=== PATIENT | male | born 1945 | race Caucasian/White ===

== ENCOUNTER 2018-12-03 12:52 | Emergency (ER) | payer MEDICARE ==
[2018-12-03 13:07] VITALS: RESP 18; TEMP 98.1
[2018-12-03] MEDS ORDERED: LIDOCAINE 1% INJ 10MG/ML (20 ML MDV) SQ ONE (13:44)
[2018-12-03] MEDS ORDERED: DIPH,PERTUS(ACELL)TETVAC-LF 0.5 ML VIAL IM ONE (13:46)
--- NOTE | 2018-12-03 14:42 | ED ---
General Adult HPI - General Chief complaint: Wound/Laceration Stated complaint: thumb lac Time Seen by Provider: 12/03/18 13:08 Source: patient Mode of arrival: ambulatory Limitations: no limitations - History of Present Illness Initial comments: Patient is an 3-year-old male presenting to the emergency department with a laceration to his right thumb. Patient states that he was using a saw when he accidentally sliced his finger. Patient states that he immediately came to the emergency department. Patient did not take any medication to alleviate the pain. Patient denies any numbness or tingling or muscle weakness in the thumb. Patient denies any pain in the anatomical snuffbox.. patient states that his tetanus shot is not up-to-date. - Related Data Allergies Allergy/AdvReac Type Severity Reaction Status Date / Time No Known Allergies Allergy Verified 12/03/18 13:07 Review of Systems ROS Statement: Those systems with pertinent positive or pertinent negative responses have been documented in the HPI. ROS Other: All systems not noted in ROS Statement are negative. Past Medical History Past Medical History: Hypertension History of Any Multi-Drug Resistant Organisms: None Reported Past Surgical History: No Surgical Hx Reported Past Psychological History: No Psychological Hx Reported Smoking Status: Never smoker Past Alcohol Use History: None Reported Past Drug Use History: None Reported General Exam Limitations: no limitations General appearance: alert, in no apparent distress Head exam: Present: atraumatic, normocephalic, normal inspection Eye exam: Present: normal appearance, PERRL, EOMI ENT exam: Present: normal exam Neck exam: Present: normal inspection Respiratory exam: Present: normal lung sounds bilaterally. Absent: wheezes, rales Cardiovascular Exam: Present: regular rate, normal rhythm, normal heart sounds Right General: Present: laceration (2 cm linear laceration on right first digit.). Absent: foreign body Hand Wrist exam: Present: normal inspection, full ROM Vascular: Present: normal capillary refill Neurological exam: Present: alert, oriented X3 Psychiatric exam: Present: normal affect, normal mood Skin exam: Present: warm, normal color Course Vital Signs 12/03/18 13:03 Temperature 98.1 F Pulse Rate 82 Respiratory 18 Rate Blood Pressure 146/85 O2 Sat by Pulse 96 Oximetry Procedures - Laceration Laceration #1 Indication: laceration Site: other (First digit, right) Size (cm): 2 Description: linear Depth: simple, single layer Anesthetic Used: lidocaine 1% Anesthesia Technique: local infiltration Amount (mls): 10 Type of Sutures: nylon Size of Sutures: 4-0 Number of Sutures: 8 Technique: simple, interrupted Patient Tolerated Procedure: well Medical Decision Making - Medical Decision Making Patient is an 3-year-old male presents to the emergency department with laceration to the right first digit. Patient was locally anesthetized with lidocaine and a sutures were placed. Return parameters were discussed with the patient. Patient was also given a tetanus shot. Patient advised to follow proper wound care instructions. Case discussed with physician. Disposition Clinical Impression: Laceration Disposition: HOME SELF-CARE Condition: Stable Instructions (If sedation given, give patient instructions): Moderate Sedation (ED) Additional Instructions: Please follow wound care instructions. Please follow up primary care. Is patient prescribed a controlled substance at d/c from ED?: No Referrals: Talya Field DO [Primary Care Provider] - 1-2 days Time of Disposition: 14:42
[2018-12-03 14:50] VITALS: BP 128/103; PULSE 83
== END 2018-12-03 14:48 | disposition home or self-care (01) ==
LOC: EC 12:52
DX: S61.011A Laceration without foreign body of right thumb without damage to nail, initial encounter (principal); Z23 Encounter for immunization; W31.2XXA Contact with powered woodworking and forming machines, initial encounter; Y92.009 Unspecified place in unspecified non-institutional (private) residence as the place of occurrence of the external cause
CPT/HCPCS: 90715; 99282; 12001; 90471; J2001

== ENCOUNTER → 2019-05-11 | Outpatient (CLI) | payer MEDICARE ==
--- NOTE | 2019-05-11 11:12 | FL ---
EXAMINATION TYPE: FL barium swallow DATE OF EXAM: 05/11/2019 CLINICAL HISTORY: Dysphagia and cough TECHNIQUE: A double contrast esophagram is performed utilizing air and barium. A total of 1 minute and 25 seconds of fluoroscopic time was utilized during procedure. 38 fluoroscopic images were saved during the examination. COMPARISON: None FINDINGS: The esophagus shows abnormal motility and emptying into the stomach with tertiary contracti ons and small hiatal hernia. No evidence of stricture noted. Moderate degree gastroesophageal reflux is seen to the midthoracic esophagus. Ovoid filling defect of the mid to distal esophagus at approximately the level of T10 persists throug hout the examination and therefore is not related to an air bubble. Follow-up is suspected although i nitial images demonstrate questionable appearance of a diverticulum at a similar level. IMPRESSION: 1. Filling defect of the mid to distal esophagus above the level of T10 approximately that may repres ent a small polyp or alternatively diverticulum. Direct visualization with endoscopy is recommended. 2. Small to moderate hiatal hernia and moderate degree gastroesophageal reflux. 3. Findings most commonly relating to presbyesophagus.
== END | disposition home or self-care (01) ==
LOC: RADUSWWP 09:47
PROVIDERS: ATTEND Family Medicine
DX: K44.9 Diaphragmatic hernia without obstruction or gangrene (principal); K21.9 Gastro-esophageal reflux disease without esophagitis; R93.3 Abnormal findings on diagnostic imaging of other parts of digestive tract
CPT/HCPCS: 74220

== ENCOUNTER 2019-05-31 12:48 | Day surgery (SDC) | payer MEDICARE ==
[2019-05-26 14:52] VITALS: BMI 29.7
[~2019-05-31 12:48] MED LIST: LACTATED RINGERS 1,000 ML IV SCH; LIDOCAINE 1% 20 ML VIAL (10MG/ML) FOR IV START INTRADERMA PRN
[2019-05-31] MEDS ORDERED: LIDOCAINE 1% 20 ML VIAL (10MG/ML) FOR IV START INTRADERMA ONE (13:02)
[2019-05-31] MEDS ORDERED: LACTATED RINGERS 1,000 ML IV ONE (13:02)
[2019-05-31 13:03] VITALS: RESP 18; TEMP 97.8
[2019-05-31] MEDS ORDERED: LIDOCAINE 1% INJ 10MG/ML (20 ML MDV) ONE (13:58)
[2019-05-31] MEDS ORDERED: MIDAZOLAM 2 MG/2 ML VIAL ONE (13:58)
[2019-05-31] MEDS ORDERED: PROPOFOL 10 MG/ML 20 ML VIAL IV ONE (13:58)
[2019-05-31] MEDS ORDERED: fentaNYL (PF) 50 MCG/ML 2 ML AMP ONE (13:58)
--- NOTE | 2019-05-31 14:07 | P.GSHP ---
History of Present Illness H&P Date: 05/31/19 Chief Complaint: Dysphagia This is a 74-year-old male who presents today for EGD. Patient's had complaints of dysphagia. His recent esophagram shows possible esophageal polyp and hiatal hernia. Past Medical History Past Medical History: Cancer, Hypertension, Osteoarthritis (OA) Additional Past Medical History / Comment(s): hx polyp, psoariatic arthritis, skin cancer, hx "bleeding ulcer" History of Any Multi-Drug Resistant Organisms: None Reported Past Surgical History: Orthopedic Surgery, Tonsillectomy Additional Past Surgical History / Comment(s): skin cancer removed face, rt rotator cuff, sleep apnea surgery, surgery for bleeding ulcer Past Anesthesia/Blood Transfusion Reactions: No Reported Reaction Smoking Status: Never smoker - Past Family History Sister(s) Family Medical History: Cancer Additional Family Medical History / Comment(s): lung cancer Father Family Medical History: Liver Disease Additional Family Medical History / Comment(s): cirrhosis of liver Medications and Allergies Home Medications Medication Instructions Recorded Confirmed Type Adalimumab [Humira Pen] 40 mg SQ [id number] 05/26/19 05/31/19 History Folic Acid 1 mg PO DAILY 05/26/19 05/31/19 History Lisinopril-Hctz 20-12.5 mg 1 tab PO BID 05/26/19 05/31/19 History [Zestoretic 20-12.5] Methotrexate (Unknown) 1 dose INJ TU 05/26/19 05/31/19 History Pantoprazole Sodium 40 mg PO DAILY 05/26/19 05/31/19 History Propranolol HCl [Propranolol HCl 120 mg PO DAILY 05/26/19 05/26/19 History ER] Allergies Allergy/AdvReac Type Severity Reaction Status Date / Time No Known Allergies Allergy Verified 05/26/19 14:39 Surgical - Exam Vital Signs Temp Pulse Resp BP Pulse Ox 97.8 F 63 18 149/87 96 05/31/19 13:01 05/31/19 13:01 05/31/19 13:01 05/31/19 13:01 05/31/19 13:01 - General well developed, well nourished, no distress - Eyes PERRL - ENT normal pinna - Neck no masses - Respiratory normal expansion - Cardiovascular Rhythm: regular - Abdomen Abdomen: soft, non tender Assessment and Plan Assessment: History of dysphagia and possible esophageal polyp. We'll perform EGD.
--- NOTE | 2019-05-31 14:16 | P.OP ---
Date of Procedure: 05/31/19 Preoperative Diagnosis: Dysphagia Postoperative Diagnosis: Hiatal hernia Esophagitis Mild gastritis Procedure(s) Performed: EGD Anesthesia: MAC Surgeon: Sregio Olivares Pathology: other (Antrum, esophagus) Description of Procedure: The patient's placed on the endoscopy table in the lateral position. He received IV sedation. The gastroscope placed oropharynx passed in the esophagus and into the stomach. Scope then placed through the pylorus. The first and second portion of duodenum appeared normal. Scope was then brought back the antrum this appeared inflamed. Biopsies performed. Scope was then retroflexed and the remainder some appeared normal. The small moderate size hiatal hernia. The hiatal hernia sliding. Scope was then brought back the esophagus. The distal esophagus. Mildly was Appeared was then brought back into the midportion esophagus appeared to be a submucosal questionable mass. The patient was having trouble sedation with more awake and was moving during the procedure. The area was biopsied. There is no definite polyps seen in the esophagus. There is no evidence of any esophageal neoplasm. The scope was then brought back the proximal esophagus appeared normal. Scope was withdrawn for patient.
[2019-05-31 14:31] VITALS: BP 114/80; PULSE 64
== END 2019-05-31 14:48 | disposition home or self-care (01) ==
LOC: ORWHC2ENDO 12:48
PROVIDERS: ATTEND Surgery
DX: K29.50 Unspecified chronic gastritis without bleeding (principal); K44.9 Diaphragmatic hernia without obstruction or gangrene; K20.9 Esophagitis, unspecified; I10 Essential (primary) hypertension; M19.90 Unspecified osteoarthritis, unspecified site; L40.50 Arthropathic psoriasis, unspecified; Z87.11 Personal history of peptic ulcer disease; Z79.899 Other long term (current) drug therapy; Z98.890 Other specified postprocedural states; Z85.828 Personal history of other malignant neoplasm of skin; Z80.1 Family history of malignant neoplasm of trachea, bronchus and lung; Z83.79 Family history of other diseases of the digestive system
CPT/HCPCS: 88305; 43239; J2250; J2001; J3010; J2704